=== PATIENT | female | born 1945 | race Caucasian/White ===

== ENCOUNTER 2022-11-15 16:06 | Inpatient (IN) | payer MEDICARE, OTHER, MEDICAID ==
[2022-11-15] MEDS ORDERED: Sodium Chloride 0.9% 10 ML Syringe FLUSH PRN (17:46)
[2022-11-15 19:07] LABS: BASOPHILS ABSOLUTE AUTO 0.02 K/mm3 (0.01-0.08); BASOPHILS PERCENT AUTO 0.2 % (0.1-1.2); EOSINOPHILS ABSOLUTE AUTO 0.16 K/mm3 (0.04-0.36); EOSINOPHILS PERCENT AUTO 1.4 (0.7-5.8); HEMATOCRIT 28.3 % (34.1-44.9); HEMOGLOBIN 8.6 gm/dl (11.2-15.7); IMMATURE GRAN ABSOLUTE AUTO 0.06 K/mm3 (0.00-0.10); IMMATURE GRAN PERCENT AUTO 0.5 % (<=1.0); LYMPHOCYTES ABSOLUTE AUTO 0.96 K/mm3 (1.18-3.74); LYMPHOCYTES PERCENT AUTO 8.4 % (19.3-51.7); MEAN CORPUSCULAR HEMOGLOBIN 28.8 pg (25.6-32.2); MEAN CORPUSCULAR HGB CONC 30.4 g/dl (32.2-35.5); MEAN CORPUSCULAR VOLUME 94.6 fl (79.4-94.8); MEAN PLATELET VOLUME 9.1 fl (9.4-12.3); MONOCYTES ABSOLUTE AUTO 0.86 K/mm3 (0.24-0.36); MONOCYTES PERCENT AUTO 7.5 % (4.7-12.5); NEUTROPHILS ABSOLUTE AUTO 9.39 K/mm3 (1.56-6.13); PLATELET COUNT,PLT 493 K/mm3 (182-369); RED BLOOD CELL COUNT 2.99 M/mm3 (3.98-5.22); WHITE BLOOD CELL COUNT,WBC 11.45 K/mm3 (3.98-10.04)
[2022-11-15 19:27] LABS: INR 1.21; PROTHROMBIN TIME 12.8 SECONDS (9.7-12.0)
[2022-11-15 19:28] LABS: PTT,PARTIAL THROMBOPLSTIN TIME 31.4 SECONDS (21.7-31.4)
[2022-11-15 20:05] LABS: A/G RATIO 0.3 (1-2); ALANINE AMINOTRANSFERASE,ALT 22 U/L (14-59); ALBUMIN 1.3 g/dl (3.4-5.0); ALKALINE PHOSPHATASE 128 U/L (46-116); ANION GAP 6.4 (5-15); ASPARTATE AMNIOTRANSFERASE,AST 23 U/L (15-37); BILIRUBIN TOTAL 0.4 mg/dL (0.2-1.0); BLOOD UREA NITROGEN,BUN 22 mg/dL (7-18); CALCIUM 8.2 mg/dL (8.5-10.1); CARBON DIOXIDE,CO2 34 mEq/L (21-32); CHLORIDE,CL 95 mEq/L (98-107); ESTIMATED GFR 57 mL/min (>60); GLUCOSE RANDOM 181 mg/dL (70-99); LIPASE 33 U/L (73-393); MAGNESIUM 1.6 mg/dL (1.8-2.4); PROTEIN TOTAL,TP 5.6 g/dl (6.4-8.2); SODIUM,NA 133 mEq/L (136-145); TROPONIN I HIGH SENSITIVITY 28 pg/mL (<=51)
[2022-11-15] MEDS ORDERED: cefTRIAXone 2 GM in Sodium Chloride 0.9% 100 ML IV ONE (20:06)
[2022-11-15 20:09] LABS: C-REACTIVE PROTEIN 15.8 mg/dL (<1.0); POTASSIUM,K 2.4 mEq/L (3.5-5.1)
[2022-11-15] MEDS ORDERED: Sodium Chloride 0.9% 1,000 ML ONE (22:38)
[2022-11-15] MEDS: Potassium Chloride 10 MEQ in Premix Bag 1 BAG IV SCH (22:42)
[2022-11-15] MEDS ORDERED: Sodium Chloride 0.9% 1,000 ML IV SCH (22:45)
[2022-11-16] MEDS: Potassium Chloride 10 MEQ in Premix Bag 1 BAG IV SCH ×5 (00:06→11:23)
[2022-11-16] MEDS ORDERED: Ondansetron 4 MG/2 ML SDV IVPUSH PRN (00:38)
[2022-11-16 01:44] LABS: APPEARANCE,URINE CLOUDY (Clear); BILIRUBIN,URINE NEGATIVE (Negative); COLOR,URINE YELLOW (Yellow); GLUCOSE,URINE 2+ (Negative); KETONES,URINE NEGATIVE (Negative); LEUKOCYTE ESTERASE,URINE 1+ (Negative); NITRITE,URINE NEGATIVE (Negative); OCCULT BLOOD,URINE 2+ (Negative); PROTEIN,URINE 1+ (Negative); UROBILINOGEN,URINE 0.2 (0.2-1.0)
[2022-11-16 02:02] LABS: BACTERIA,URINE MANY /hpf (FEW); EPITHELIAL CELLS,URINE NOT SEEN /hpf (0-5); MUCUS,URINE NOT SEEN /hpf (FEW); RBC,URINE 20-30 /hpf (0-5); WBC,URINE >100 /hpf (0-5); YEAST BUDDING,URINE MANY (NOT SEEN)
[2022-11-16] MEDS ORDERED: Loperamide 2 MG Cap PO PRN (06:48)
[2022-11-16 07:30] LABS: BASOPHILS ABSOLUTE AUTO 0.03 K/mm3 (0.01-0.08); BASOPHILS PERCENT AUTO 0.4 % (0.1-1.2); EOSINOPHILS ABSOLUTE AUTO 0.13 K/mm3 (0.04-0.36); EOSINOPHILS PERCENT AUTO 1.7 (0.7-5.8); HEMATOCRIT 24.7 % (34.1-44.9); HEMOGLOBIN 7.5 gm/dl (11.2-15.7); IMMATURE GRAN ABSOLUTE AUTO 0.03 K/mm3 (0.00-0.10); IMMATURE GRAN PERCENT AUTO 0.4 % (<=1.0); LYMPHOCYTES ABSOLUTE AUTO 1.29 K/mm3 (1.18-3.74); LYMPHOCYTES PERCENT AUTO 16.7 % (19.3-51.7); MEAN CORPUSCULAR HEMOGLOBIN 28.5 pg (25.6-32.2); MEAN CORPUSCULAR HGB CONC 30.4 g/dl (32.2-35.5); MEAN CORPUSCULAR VOLUME 93.9 fl (79.4-94.8); MEAN PLATELET VOLUME 9.2 fl (9.4-12.3); MONOCYTES ABSOLUTE AUTO 0.81 K/mm3 (0.24-0.36); MONOCYTES PERCENT AUTO 10.5 % (4.7-12.5); NEUTROPHILS ABSOLUTE AUTO 5.45 K/mm3 (1.56-6.13); NEUTROPHILS PERCENT AUTO 70.3 % (34.0-71.1); PLATELET COUNT,PLT 431 K/mm3 (182-369); RED BLOOD CELL COUNT 2.63 M/mm3 (3.98-5.22); WHITE BLOOD CELL COUNT,WBC 7.74 K/mm3 (3.98-10.04)
[2022-11-16 07:36] LABS: A/G RATIO 0.3 (1-2); ALBUMIN 1.1 g/dl (3.4-5.0); ANION GAP 7.7 (5-15); BILIRUBIN TOTAL 0.3 mg/dL (0.2-1.0); BUN/CREATININE RATIO 23.3 (14-18); CALCIUM 7.5 mg/dL (8.5-10.1); CREATININE 0.9 mg/dL (0.55-1.02); EST CRCL DRUG DOSING (CG) 45.61 mL/min; MAGNESIUM 1.5 mg/dL (1.8-2.4); POTASSIUM,K 2.7 mEq/L (3.5-5.1); PROTEIN TOTAL,TP 4.7 g/dl (6.4-8.2)
[2022-11-16] MEDS: Hydrochlorothiazide 25 MG Tab PO SCH (08:05)
[2022-11-16] MEDS: Ascorbic Acid 500 MG Tab PO SCH ×2 (08:05→20:31)
[2022-11-16] MEDS: Metoprolol Tartrate 25 MG Tab PO SCH ×2 (08:05→20:29)
[2022-11-16] MEDS ORDERED: Furosemide 20 MG Tab PO SCH (09:00)
[2022-11-16] MEDS ORDERED: Potassium Chloride 10 MEQ Tab.ER PO SCH (09:00)
[2022-11-16] MEDS: Heparin Sodium 5,000 Units/ML Vial SUBCUT SCH ×2 (09:47→20:33)
[2022-11-16] MEDS ORDERED: Magnesium Oxide 400 MG Tab PO ONE (10:00)
[2022-11-16] MEDS ORDERED: Furosemide 20 MG Tab PO ONE (10:00)
[2022-11-16] MEDS: Acetaminophen 325 MG Tab PO PRN ×2 (15:25→20:30)
[2022-11-16] MEDS: cefTRIAXone 2 GM in Sodium Chloride 0.9% 100 ML IV SCH (20:26)
[2022-11-16] MEDS: Dexamethasone/Neomycin/Polymyxin B Ophth Oint 3.5 GM Tube EYEBOTH SCH (20:29)
[2022-11-17 05:31] LABS: BASOPHILS ABSOLUTE AUTO 0.01 K/mm3 (0.01-0.08); BASOPHILS PERCENT AUTO 0.1 % (0.1-1.2); EOSINOPHILS ABSOLUTE AUTO 0.57 K/mm3 (0.04-0.36); EOSINOPHILS PERCENT AUTO 8.5 (0.7-5.8); HEMATOCRIT 26.7 % (34.1-44.9); HEMOGLOBIN 8.1 gm/dl (11.2-15.7); IMMATURE GRAN ABSOLUTE AUTO 0.06 K/mm3 (0.00-0.10); IMMATURE GRAN PERCENT AUTO 0.9 % (<=1.0); LYMPHOCYTES ABSOLUTE AUTO 1.08 K/mm3 (1.18-3.74); LYMPHOCYTES PERCENT AUTO 16.1 % (19.3-51.7); MEAN CORPUSCULAR HEMOGLOBIN 28.7 pg (25.6-32.2); MEAN CORPUSCULAR HGB CONC 30.3 g/dl (32.2-35.5); MEAN CORPUSCULAR VOLUME 94.7 fl (79.4-94.8); MONOCYTES ABSOLUTE AUTO 0.69 K/mm3 (0.24-0.36); MONOCYTES PERCENT AUTO 10.3 % (4.7-12.5); NEUTROPHILS ABSOLUTE AUTO 4.28 K/mm3 (1.56-6.13); NEUTROPHILS PERCENT AUTO 64.1 % (34.0-71.1); PLATELET COUNT,PLT 429 K/mm3 (182-369); RED BLOOD CELL COUNT 2.82 M/mm3 (3.98-5.22); WHITE BLOOD CELL COUNT,WBC 6.69 K/mm3 (3.98-10.04)
[2022-11-17 06:24] LABS: A/G RATIO 0.3 (1-2); ALBUMIN 1.1 g/dl (3.4-5.0); ANION GAP 9.6 (5-15); BILIRUBIN TOTAL 0.2 mg/dL (0.2-1.0); BUN/CREATININE RATIO 19.1 (14-18); CALCIUM 7.9 mg/dL (8.5-10.1); CREATININE 1.1 mg/dL (0.55-1.02); EST CRCL DRUG DOSING (CG) 37.32 mL/min; MAGNESIUM 1.6 mg/dL (1.8-2.4); POTASSIUM,K 2.6 mEq/L (3.5-5.1); PROTEIN TOTAL,TP 4.9 g/dl (6.4-8.2)
[2022-11-17 07:33] LABS: HEMOGLOBIN A1C 5.7 %
[2022-11-17] MEDS: Magnesium Oxide 400 MG Tab PO SCH (09:16)
[2022-11-17] MEDS: Heparin Sodium 5,000 Units/ML Vial SUBCUT SCH ×2 (09:16→21:25)
[2022-11-17] MEDS: Metoprolol Tartrate 25 MG Tab PO SCH ×2 (09:16→21:21)
[2022-11-17] MEDS: Ascorbic Acid 500 MG Tab PO SCH ×2 (09:16→21:22)
[2022-11-17] MEDS: Furosemide 80 MG Tab PO SCH (09:17)
[2022-11-17] MEDS: Potassium Chloride 20 MEQ Tab.ER PO SCH (09:17)
[2022-11-17] MEDS: Hydrochlorothiazide 25 MG Tab PO SCH (09:17)
[2022-11-17] MEDS: Dexamethasone/Neomycin/Polymyxin B Ophth Oint 3.5 GM Tube EYEBOTH SCH ×2 (09:18→21:22)
[2022-11-17] MEDS: Acetaminophen 325 MG Tab PO PRN (09:20)
[2022-11-17] MEDS: cefTRIAXone 2 GM in Sodium Chloride 0.9% 100 ML IV SCH (21:25)
[2022-11-18] MEDS: Acetaminophen 325 MG Tab PO PRN ×4 (00:42→22:07)
[2022-11-18 05:25] LABS: BASOPHILS ABSOLUTE AUTO 0.02 K/mm3 (0.01-0.08); BASOPHILS PERCENT AUTO 0.3 % (0.1-1.2); EOSINOPHILS ABSOLUTE AUTO 0.47 K/mm3 (0.04-0.36); EOSINOPHILS PERCENT AUTO 6.5 (0.7-5.8); HEMATOCRIT 25.2 % (34.1-44.9); HEMOGLOBIN 7.7 gm/dl (11.2-15.7); IMMATURE GRAN ABSOLUTE AUTO 0.03 K/mm3 (0.00-0.10); IMMATURE GRAN PERCENT AUTO 0.4 % (<=1.0); LYMPHOCYTES ABSOLUTE AUTO 1.18 K/mm3 (1.18-3.74); LYMPHOCYTES PERCENT AUTO 16.3 % (19.3-51.7); MEAN CORPUSCULAR HEMOGLOBIN 28.7 pg (25.6-32.2); MEAN CORPUSCULAR HGB CONC 30.6 g/dl (32.2-35.5); MEAN PLATELET VOLUME 9.1 fl (9.4-12.3); MONOCYTES ABSOLUTE AUTO 0.65 K/mm3 (0.24-0.36); NEUTROPHILS ABSOLUTE AUTO 4.89 K/mm3 (1.56-6.13); NEUTROPHILS PERCENT AUTO 67.5 % (34.0-71.1); PLATELET COUNT,PLT 454 K/mm3 (182-369); RED BLOOD CELL COUNT 2.68 M/mm3 (3.98-5.22); WHITE BLOOD CELL COUNT,WBC 7.24 K/mm3 (3.98-10.04)
[2022-11-18 05:54] LABS: A/G RATIO 0.3 (1-2); ANION GAP 9.5 (5-15); BILIRUBIN TOTAL 0.2 mg/dL (0.2-1.0); CALCIUM 7.8 mg/dL (8.5-10.1); EST CRCL DRUG DOSING (CG) 41.05 mL/min; MAGNESIUM 1.5 mg/dL (1.8-2.4); PROTEIN TOTAL,TP 4.5 g/dl (6.4-8.2)
[2022-11-18 05:57] LABS: POTASSIUM,K 2.5 mEq/L (3.5-5.1)
[2022-11-18] MEDS: Potassium Chloride 10 MEQ in Premix Bag 1 BAG IV SCH ×4 (08:12→16:13)
[2022-11-18] MEDS ORDERED: Sodium Chloride 0.9% 1,000 ML IV SCH (08:30)
[2022-11-18] MEDS: Magnesium Oxide 400 MG Tab PO SCH (08:42)
[2022-11-18] MEDS: Potassium Chloride 20 MEQ Tab.ER PO SCH (08:43)
[2022-11-18] MEDS: Hydrochlorothiazide 25 MG Tab PO SCH (08:43)
[2022-11-18] MEDS: Ascorbic Acid 500 MG Tab PO SCH ×2 (08:43→21:58)
[2022-11-18] MEDS: Furosemide 80 MG Tab PO SCH (08:43)
[2022-11-18] MEDS: Metoprolol Tartrate 25 MG Tab PO SCH ×2 (08:43→21:59)
[2022-11-18] MEDS: Heparin Sodium 5,000 Units/ML Vial SUBCUT SCH ×2 (08:46→21:57)
[2022-11-18] MEDS: Dexamethasone/Neomycin/Polymyxin B Ophth Oint 3.5 GM Tube EYEBOTH SCH ×2 (11:10→21:58)
[2022-11-18] MEDS: cefTRIAXone 2 GM in Sodium Chloride 0.9% 100 ML IV SCH (21:59)
[2022-11-19] MEDS: Acetaminophen 325 MG Tab PO PRN ×4 (02:33→21:43)
[2022-11-19 07:31] LABS: BASOPHILS ABSOLUTE AUTO 0.03 K/mm3 (0.01-0.08); BASOPHILS PERCENT AUTO 0.3 % (0.1-1.2); EOSINOPHILS ABSOLUTE AUTO 0.42 K/mm3 (0.04-0.36); EOSINOPHILS PERCENT AUTO 4.7 (0.7-5.8); HEMATOCRIT 27.6 % (34.1-44.9); HEMOGLOBIN 8.5 gm/dl (11.2-15.7); IMMATURE GRAN ABSOLUTE AUTO 0.07 K/mm3 (0.00-0.10); IMMATURE GRAN PERCENT AUTO 0.8 % (<=1.0); LYMPHOCYTES ABSOLUTE AUTO 1.49 K/mm3 (1.18-3.74); LYMPHOCYTES PERCENT AUTO 16.8 % (19.3-51.7); MEAN CORPUSCULAR HEMOGLOBIN 28.8 pg (25.6-32.2); MEAN CORPUSCULAR HGB CONC 30.8 g/dl (32.2-35.5); MEAN CORPUSCULAR VOLUME 93.6 fl (79.4-94.8); MEAN PLATELET VOLUME 8.8 fl (9.4-12.3); MONOCYTES ABSOLUTE AUTO 0.65 K/mm3 (0.24-0.36); MONOCYTES PERCENT AUTO 7.3 % (4.7-12.5); NEUTROPHILS ABSOLUTE AUTO 6.22 K/mm3 (1.56-6.13); NEUTROPHILS PERCENT AUTO 70.1 % (34.0-71.1); PLATELET COUNT,PLT 493 K/mm3 (182-369); RED BLOOD CELL COUNT 2.95 M/mm3 (3.98-5.22); WHITE BLOOD CELL COUNT,WBC 8.88 K/mm3 (3.98-10.04)
[2022-11-19 07:54] LABS: A/G RATIO 0.3 (1-2); ALBUMIN 1.1 g/dl (3.4-5.0); ANION GAP 7.3 (5-15); BILIRUBIN TOTAL 0.2 mg/dL (0.2-1.0); CREATININE 0.9 mg/dL (0.55-1.02); EST CRCL DRUG DOSING (CG) 45.61 mL/min; MAGNESIUM 1.5 mg/dL (1.8-2.4); POTASSIUM,K 3.3 mEq/L (3.5-5.1); PROTEIN TOTAL,TP 4.9 g/dl (6.4-8.2)
[2022-11-19] MEDS: Meropenem 1 GM in Sodium Chloride 0.9% 100 ML IV SCH ×3 (08:28→22:14)
[2022-11-19] MEDS: Furosemide 80 MG Tab PO SCH (08:29)
[2022-11-19] MEDS: Metoprolol Tartrate 25 MG Tab PO SCH ×2 (08:29→21:34)
[2022-11-19] MEDS: Heparin Sodium 5,000 Units/ML Vial SUBCUT SCH ×2 (08:29→21:32)
[2022-11-19] MEDS: Hydrochlorothiazide 25 MG Tab PO SCH (08:29)
[2022-11-19] MEDS: Magnesium Oxide 400 MG Tab PO SCH (08:30)
[2022-11-19] MEDS: Dexamethasone/Neomycin/Polymyxin B Ophth Oint 3.5 GM Tube EYEBOTH SCH ×2 (08:30→21:42)
[2022-11-19] MEDS: Potassium Chloride 20 MEQ Tab.ER PO SCH ×3 (08:30→21:35)
[2022-11-19] MEDS: Ascorbic Acid 500 MG Tab PO SCH ×2 (08:30→21:35)
[2022-11-19] MEDS ORDERED: Magnesium Sulfate/Water 4 GM in Premix Bag 1 BAG IV ONE (09:00)
[2022-11-19] MEDS ORDERED: Sodium Chloride 0.9% 10 ML Syringe FLUSH PRN (10:16)
[2022-11-19] MEDS ORDERED: Iopamidol 612 MG/ML 100 ML Bottle IVPUSH ONE (10:16)
[2022-11-19] MEDS: oxyCODONE 5 MG Tab PO PRN (11:04)
[2022-11-19] MEDS: Fluconazole 100 MG Tab PO SCH (13:22)
[2022-11-19] MEDS: Albumin 25% 12.5 GM in Premix Bag 1 BAG IV SCH ×2 (13:23→15:33)
[2022-11-19 13:47] LABS: PHOSPHORUS 2.5 mg/dL (2.6-4.7)
[2022-11-19 14:21] LABS: VITAMIN D,25-HYDROXY 18.1 ng/ml (30.0-100.0)
[2022-11-19] MEDS ORDERED: Sodium Ferric Gluconate Cmplex 125 MG in Sodium Chloride 0.9% 100 ML IV ONE (15:00)
[2022-11-19] MEDS: Bumetanide 1 MG Tab PO SCH (15:34)
[2022-11-19] MEDS ORDERED: Sodium Phosphate 15 MMOLE in Sodium Chloride 0.9% 250 ML IV ONE (16:00)
[2022-11-20] MEDS: oxyCODONE 5 MG Tab PO PRN ×3 (04:56→22:02)
[2022-11-20 05:53] LABS: ANION GAP 10.2 (5-15); CREATININE 0.9 mg/dL (0.55-1.02); EST CRCL DRUG DOSING (CG) 45.61 mL/min; MAGNESIUM 1.9 mg/dL (1.8-2.4); POTASSIUM,K 4.2 mEq/L (3.5-5.1)
[2022-11-20] MEDS: Bumetanide 1 MG Tab PO SCH ×2 (05:55→16:00)
[2022-11-20] MEDS: Meropenem 1 GM in Sodium Chloride 0.9% 100 ML IV SCH ×3 (06:29→23:03)
[2022-11-20] MEDS ORDERED: Magnesium Sulfate/Water 2 GM in Premix Bag 1 BAG IV ONE (08:06)
[2022-11-20] MEDS: Heparin Sodium 5,000 Units/ML Vial SUBCUT SCH ×3 (08:27→21:24)
[2022-11-20] MEDS: Acetaminophen 325 MG Tab PO PRN ×2 (08:28→16:01)
[2022-11-20] MEDS: Potassium Chloride 20 MEQ Tab.ER PO SCH (08:28)
[2022-11-20] MEDS: Ascorbic Acid 500 MG Tab PO SCH ×2 (08:28→21:24)
[2022-11-20] MEDS: Dexamethasone/Neomycin/Polymyxin B Ophth Oint 3.5 GM Tube EYEBOTH SCH ×2 (08:29→21:26)
[2022-11-20] MEDS: Cholecalciferol (Vitamin D3) 5,000 UNIT Cap PO SCH (08:29)
[2022-11-20] MEDS: Fluconazole 100 MG Tab PO SCH (08:31)
[2022-11-20] MEDS: Metoprolol Tartrate 25 MG Tab PO SCH ×2 (08:31→21:26)
[2022-11-20] MEDS ORDERED: Bumetanide 1 MG Tab PO SCH (09:00)
[2022-11-20] MEDS ORDERED: fentaNYL 25 MCG/HR Transdermal Patch TRDERM SCH (17:00)
[2022-11-21] MEDS: Acetaminophen 325 MG Tab PO PRN ×3 (00:21→21:18)
[2022-11-21] MEDS: oxyCODONE 5 MG Tab PO PRN (05:48)
[2022-11-21] MEDS: Bumetanide 1 MG Tab PO SCH ×2 (05:48→16:04)
[2022-11-21] MEDS: Meropenem 1 GM in Sodium Chloride 0.9% 100 ML IV SCH ×2 (06:16→17:49)
[2022-11-21 09:04] LABS: A/G RATIO 0.4 (1-2); ALBUMIN 1.4 g/dl (3.4-5.0); ANION GAP 8.5 (5-15); BILIRUBIN TOTAL 0.2 mg/dL (0.2-1.0); BUN/CREATININE RATIO 23.3 (14-18); CALCIUM 8.1 mg/dL (8.5-10.1); CREATININE 0.9 mg/dL (0.55-1.02); EST CRCL DRUG DOSING (CG) 45.61 mL/min; MAGNESIUM 2.2 mg/dL (1.8-2.4); POTASSIUM,K 4.5 mEq/L (3.5-5.1)
[2022-11-21] MEDS: Cholecalciferol (Vitamin D3) 5,000 UNIT Cap PO SCH (09:08)
[2022-11-21] MEDS: Metoprolol Tartrate 25 MG Tab PO SCH ×2 (09:09→21:19)
[2022-11-21] MEDS: Potassium Chloride 20 MEQ Tab.ER PO SCH (09:09)
[2022-11-21] MEDS: Ascorbic Acid 500 MG Tab PO SCH ×2 (09:09→21:18)
[2022-11-21] MEDS: Magnesium Oxide 400 MG Tab PO SCH (09:09)
[2022-11-21] MEDS: Dexamethasone/Neomycin/Polymyxin B Ophth Oint 3.5 GM Tube EYEBOTH SCH ×2 (09:10→21:23)
[2022-11-21] MEDS: Heparin Sodium 5,000 Units/ML Vial SUBCUT SCH ×2 (09:10→21:17)
[2022-11-21] MEDS ORDERED: Megestrol Susp 40 MG/ML 10 ML UD Cup PO SCH (13:30)
[2022-11-21] MEDS: Megestrol Susp 40 MG/ML 10 ML UD Cup PO SCH (14:01)
[2022-11-21] MEDS: fentaNYL 12 MCG/HR Transdermal Patch TRDERM SCH (14:01)
[2022-11-21] MEDS: Levofloxacin 750 MG Tab PO SCH (16:05)
[2022-11-22] MEDS: oxyCODONE 5 MG Tab PO PRN ×2 (04:26→16:21)
[2022-11-22] MEDS: Bumetanide 1 MG Tab PO SCH ×2 (06:12→16:20)
[2022-11-22 07:08] LABS: A/G RATIO 0.4 (1-2); ALBUMIN 1.3 g/dl (3.4-5.0); ANION GAP 7.2 (5-15); BILIRUBIN TOTAL 0.2 mg/dL (0.2-1.0); BUN/CREATININE RATIO 22.5 (14-18); CALCIUM 7.9 mg/dL (8.5-10.1); CREATININE 0.8 mg/dL (0.55-1.02); EST CRCL DRUG DOSING (CG) 51.31 mL/min; MAGNESIUM 1.7 mg/dL (1.8-2.4); POTASSIUM,K 4.2 mEq/L (3.5-5.1); PROTEIN TOTAL,TP 4.8 g/dl (6.4-8.2)
[2022-11-22] MEDS: Metoprolol Tartrate 25 MG Tab PO SCH ×2 (08:28→20:45)
[2022-11-22] MEDS: Cholecalciferol (Vitamin D3) 5,000 UNIT Cap PO SCH (08:28)
[2022-11-22] MEDS: Magnesium Oxide 400 MG Tab PO SCH (08:28)
[2022-11-22] MEDS: Ascorbic Acid 500 MG Tab PO SCH ×2 (08:28→20:44)
[2022-11-22] MEDS: Megestrol Susp 40 MG/ML 10 ML UD Cup PO SCH (08:28)
[2022-11-22] MEDS: Potassium Chloride 20 MEQ Tab.ER PO SCH (08:30)
[2022-11-22] MEDS: Heparin Sodium 5,000 Units/ML Vial SUBCUT SCH ×2 (08:30→20:45)
[2022-11-22] MEDS: Dexamethasone/Neomycin/Polymyxin B Ophth Oint 3.5 GM Tube EYEBOTH SCH ×2 (08:30→20:44)
[2022-11-22] MEDS: Acetaminophen 325 MG Tab PO PRN (16:20)
[2022-11-22] MEDS: Gabapentin 300 MG Cap PO SCH (20:44)
[2022-11-23] MEDS: oxyCODONE 5 MG Tab PO PRN (02:22)
[2022-11-23] MEDS: Bumetanide 1 MG Tab PO SCH ×2 (05:37→15:58)
[2022-11-23 06:57] LABS: BASOPHILS ABSOLUTE AUTO 0.02 K/mm3 (0.01-0.08); BASOPHILS PERCENT AUTO 0.2 % (0.1-1.2); EOSINOPHILS ABSOLUTE AUTO 0.29 K/mm3 (0.04-0.36); EOSINOPHILS PERCENT AUTO 3.1 (0.7-5.8); HEMATOCRIT 25.5 % (34.1-44.9); HEMOGLOBIN 7.6 gm/dl (11.2-15.7); IMMATURE GRAN ABSOLUTE AUTO 0.07 K/mm3 (0.00-0.10); IMMATURE GRAN PERCENT AUTO 0.7 % (<=1.0); LYMPHOCYTES ABSOLUTE AUTO 1.68 K/mm3 (1.18-3.74); LYMPHOCYTES PERCENT AUTO 17.8 % (19.3-51.7); MEAN CORPUSCULAR HEMOGLOBIN 28.6 pg (25.6-32.2); MEAN CORPUSCULAR HGB CONC 29.8 g/dl (32.2-35.5); MEAN CORPUSCULAR VOLUME 95.9 fl (79.4-94.8); MEAN PLATELET VOLUME 8.8 fl (9.4-12.3); MONOCYTES ABSOLUTE AUTO 0.63 K/mm3 (0.24-0.36); MONOCYTES PERCENT AUTO 6.7 % (4.7-12.5); NEUTROPHILS ABSOLUTE AUTO 6.74 K/mm3 (1.56-6.13); NEUTROPHILS PERCENT AUTO 71.5 % (34.0-71.1); PLATELET COUNT,PLT 387 K/mm3 (182-369); RED BLOOD CELL COUNT 2.66 M/mm3 (3.98-5.22); WHITE BLOOD CELL COUNT,WBC 9.43 K/mm3 (3.98-10.04)
[2022-11-23 07:38] LABS: A/G RATIO 0.4 (1-2); ALBUMIN 1.2 g/dl (3.4-5.0); ANION GAP 6.1 (5-15); BILIRUBIN TOTAL 0.2 mg/dL (0.2-1.0); BUN/CREATININE RATIO 26.3 (14-18); CALCIUM 8.2 mg/dL (8.5-10.1); CREATININE 0.8 mg/dL (0.55-1.02); EST CRCL DRUG DOSING (CG) 51.31 mL/min; MAGNESIUM 1.7 mg/dL (1.8-2.4); PHOSPHORUS 2.7 mg/dL (2.6-4.7); POTASSIUM,K 4.1 mEq/L (3.5-5.1); PROTEIN TOTAL,TP 4.5 g/dl (6.4-8.2)
[2022-11-23] MEDS ORDERED: Magnesium Sulfate/Water 2 GM in Premix Bag 1 BAG IV ONE (08:00)
[2022-11-23] MEDS: Potassium Chloride 20 MEQ Tab.ER PO SCH (08:59)
[2022-11-23] MEDS: Heparin Sodium 5,000 Units/ML Vial SUBCUT SCH ×2 (08:59→21:01)
[2022-11-23] MEDS: Metoprolol Tartrate 25 MG Tab PO SCH ×2 (08:59→20:59)
[2022-11-23] MEDS: Magnesium Oxide 400 MG Tab PO SCH (08:59)
[2022-11-23] MEDS: Gabapentin 300 MG Cap PO SCH ×3 (08:59→20:59)
[2022-11-23] MEDS: Cholecalciferol (Vitamin D3) 5,000 UNIT Cap PO SCH (08:59)
[2022-11-23] MEDS: Ascorbic Acid 500 MG Tab PO SCH ×2 (08:59→20:59)
[2022-11-23] MEDS: Megestrol Susp 40 MG/ML 10 ML UD Cup PO SCH (09:02)
[2022-11-23] MEDS: Dexamethasone/Neomycin/Polymyxin B Ophth Oint 3.5 GM Tube EYEBOTH SCH ×2 (09:02→21:02)
[2022-11-23] MEDS: Levofloxacin 750 MG Tab PO SCH (15:58)
[2022-11-24] MEDS: oxyCODONE 5 MG Tab PO PRN (04:03)
[2022-11-24] MEDS: Bumetanide 1 MG Tab PO SCH ×2 (06:10→15:21)
[2022-11-24 06:19] LABS: BASOPHILS ABSOLUTE AUTO 0.01 K/mm3 (0.01-0.08); BASOPHILS PERCENT AUTO 0.1 % (0.1-1.2); EOSINOPHILS ABSOLUTE AUTO 0.25 K/mm3 (0.04-0.36); HEMATOCRIT 25.4 % (34.1-44.9); HEMOGLOBIN 7.5 gm/dl (11.2-15.7); IMMATURE GRAN ABSOLUTE AUTO 0.07 K/mm3 (0.00-0.10); IMMATURE GRAN PERCENT AUTO 0.8 % (<=1.0); LYMPHOCYTES ABSOLUTE AUTO 1.62 K/mm3 (1.18-3.74); LYMPHOCYTES PERCENT AUTO 19.2 % (19.3-51.7); MEAN CORPUSCULAR HEMOGLOBIN 28.2 pg (25.6-32.2); MEAN CORPUSCULAR HGB CONC 29.5 g/dl (32.2-35.5); MEAN CORPUSCULAR VOLUME 95.5 fl (79.4-94.8); MEAN PLATELET VOLUME 9.5 fl (9.4-12.3); MONOCYTES ABSOLUTE AUTO 0.65 K/mm3 (0.24-0.36); MONOCYTES PERCENT AUTO 7.7 % (4.7-12.5); NEUTROPHILS ABSOLUTE AUTO 5.85 K/mm3 (1.56-6.13); NEUTROPHILS PERCENT AUTO 69.2 % (34.0-71.1); PLATELET COUNT,PLT 377 K/mm3 (182-369); RED BLOOD CELL COUNT 2.66 M/mm3 (3.98-5.22); WHITE BLOOD CELL COUNT,WBC 8.45 K/mm3 (3.98-10.04)
[2022-11-24 06:21] LABS: A/G RATIO 0.3 (1-2); ALBUMIN 1.1 g/dl (3.4-5.0); ANION GAP 9.2 (5-15); BILIRUBIN TOTAL 0.2 mg/dL (0.2-1.0); BUN/CREATININE RATIO 21.1 (14-18); CALCIUM 7.8 mg/dL (8.5-10.1); CREATININE 0.9 mg/dL (0.55-1.02); EST CRCL DRUG DOSING (CG) 45.61 mL/min; MAGNESIUM 1.7 mg/dL (1.8-2.4); POTASSIUM,K 4.2 mEq/L (3.5-5.1); PROTEIN TOTAL,TP 4.7 g/dl (6.4-8.2)
[2022-11-24] MEDS: Potassium Chloride 20 MEQ Tab.ER PO SCH (08:40)
[2022-11-24] MEDS: Cholecalciferol (Vitamin D3) 5,000 UNIT Cap PO SCH (08:41)
[2022-11-24] MEDS: Acetaminophen 325 MG Tab PO PRN ×2 (08:41→20:46)
[2022-11-24] MEDS: Metoprolol Tartrate 25 MG Tab PO SCH ×2 (08:42→20:47)
[2022-11-24] MEDS: Gabapentin 300 MG Cap PO SCH ×3 (08:43→20:47)
[2022-11-24] MEDS: Ascorbic Acid 500 MG Tab PO SCH ×2 (08:43→20:47)
[2022-11-24] MEDS: Magnesium Oxide 400 MG Tab PO SCH (08:43)
[2022-11-24] MEDS: Heparin Sodium 5,000 Units/ML Vial SUBCUT SCH ×2 (08:44→20:47)
[2022-11-24] MEDS: Megestrol Susp 40 MG/ML 10 ML UD Cup PO SCH (08:44)
[2022-11-24] MEDS: Dexamethasone/Neomycin/Polymyxin B Ophth Oint 3.5 GM Tube EYEBOTH SCH ×2 (08:44→20:55)
[2022-11-24] MEDS: fentaNYL 12 MCG/HR Transdermal Patch TRDERM SCH (15:19)
[2022-11-25] MEDS: Bumetanide 1 MG Tab PO SCH ×2 (06:10→16:51)
[2022-11-25 06:36] LABS: BASOPHILS ABSOLUTE AUTO 0.03 K/mm3 (0.01-0.08); BASOPHILS PERCENT AUTO 0.3 % (0.1-1.2); EOSINOPHILS ABSOLUTE AUTO 0.22 K/mm3 (0.04-0.36); EOSINOPHILS PERCENT AUTO 2.4 (0.7-5.8); HEMATOCRIT 25.9 % (34.1-44.9); HEMOGLOBIN 7.8 gm/dl (11.2-15.7); IMMATURE GRAN ABSOLUTE AUTO 0.07 K/mm3 (0.00-0.10); IMMATURE GRAN PERCENT AUTO 0.7 % (<=1.0); LYMPHOCYTES ABSOLUTE AUTO 1.78 K/mm3 (1.18-3.74); MEAN CORPUSCULAR HEMOGLOBIN 28.4 pg (25.6-32.2); MEAN CORPUSCULAR HGB CONC 30.1 g/dl (32.2-35.5); MEAN CORPUSCULAR VOLUME 94.2 fl (79.4-94.8); MEAN PLATELET VOLUME 9.2 fl (9.4-12.3); MONOCYTES ABSOLUTE AUTO 0.78 K/mm3 (0.24-0.36); MONOCYTES PERCENT AUTO 8.3 % (4.7-12.5); NEUTROPHILS ABSOLUTE AUTO 6.47 K/mm3 (1.56-6.13); NEUTROPHILS PERCENT AUTO 69.3 % (34.0-71.1); PLATELET COUNT,PLT 391 K/mm3 (182-369); RED BLOOD CELL COUNT 2.75 M/mm3 (3.98-5.22); WHITE BLOOD CELL COUNT,WBC 9.35 K/mm3 (3.98-10.04)
[2022-11-25 06:54] LABS: A/G RATIO 0.3 (1-2); ALBUMIN 1.2 g/dl (3.4-5.0); ANION GAP 10.1 (5-15); BILIRUBIN TOTAL 0.2 mg/dL (0.2-1.0); CALCIUM 8.2 mg/dL (8.5-10.1); CREATININE 0.9 mg/dL (0.55-1.02); EST CRCL DRUG DOSING (CG) 45.61 mL/min; MAGNESIUM 1.7 mg/dL (1.8-2.4); POTASSIUM,K 4.1 mEq/L (3.5-5.1); PROTEIN TOTAL,TP 4.8 g/dl (6.4-8.2)
[2022-11-25] MEDS: Acetaminophen 325 MG Tab PO PRN ×2 (08:18→20:30)
[2022-11-25] MEDS: Megestrol Susp 40 MG/ML 10 ML UD Cup PO SCH (08:18)
[2022-11-25] MEDS: Gabapentin 300 MG Cap PO SCH ×3 (08:19→20:27)
[2022-11-25] MEDS: Cholecalciferol (Vitamin D3) 5,000 UNIT Cap PO SCH (08:20)
[2022-11-25] MEDS: Metoprolol Tartrate 25 MG Tab PO SCH ×2 (08:20→20:30)
[2022-11-25] MEDS: Potassium Chloride 20 MEQ Tab.ER PO SCH (08:20)
[2022-11-25] MEDS: Magnesium Oxide 400 MG Tab PO SCH (08:20)
[2022-11-25] MEDS: Ascorbic Acid 500 MG Tab PO SCH ×2 (08:20→20:30)
[2022-11-25] MEDS: Dexamethasone/Neomycin/Polymyxin B Ophth Oint 3.5 GM Tube EYEBOTH SCH ×2 (08:21→20:31)
[2022-11-25] MEDS: Heparin Sodium 5,000 Units/ML Vial SUBCUT SCH ×2 (08:30→20:31)
[2022-11-25] MEDS: Levofloxacin 750 MG Tab PO SCH (16:52)
[2022-11-26] MEDS: Bumetanide 1 MG Tab PO SCH ×2 (05:53→16:14)
[2022-11-26 06:22] LABS: A/G RATIO 0.3 (1-2); ALBUMIN 1.1 g/dl (3.4-5.0); ANION GAP 9.9 (5-15); BILIRUBIN TOTAL 0.2 mg/dL (0.2-1.0); BUN/CREATININE RATIO 21.1 (14-18); CREATININE 0.9 mg/dL (0.55-1.02); EST CRCL DRUG DOSING (CG) 45.61 mL/min; MAGNESIUM 1.7 mg/dL (1.8-2.4); POTASSIUM,K 3.9 mEq/L (3.5-5.1); PROTEIN TOTAL,TP 4.6 g/dl (6.4-8.2)
[2022-11-26 06:23] LABS: BASOPHILS ABSOLUTE AUTO 0.02 K/mm3 (0.01-0.08); BASOPHILS PERCENT AUTO 0.2 % (0.1-1.2); EOSINOPHILS ABSOLUTE AUTO 0.15 K/mm3 (0.04-0.36); EOSINOPHILS PERCENT AUTO 1.8 (0.7-5.8); HEMATOCRIT 24.9 % (34.1-44.9); HEMOGLOBIN 7.5 gm/dl (11.2-15.7); IMMATURE GRAN ABSOLUTE AUTO 0.05 K/mm3 (0.00-0.10); IMMATURE GRAN PERCENT AUTO 0.6 % (<=1.0); LYMPHOCYTES ABSOLUTE AUTO 1.52 K/mm3 (1.18-3.74); LYMPHOCYTES PERCENT AUTO 18.2 % (19.3-51.7); MEAN CORPUSCULAR HEMOGLOBIN 28.4 pg (25.6-32.2); MEAN CORPUSCULAR HGB CONC 30.1 g/dl (32.2-35.5); MEAN CORPUSCULAR VOLUME 94.3 fl (79.4-94.8); MEAN PLATELET VOLUME 9.4 fl (9.4-12.3); MONOCYTES ABSOLUTE AUTO 0.73 K/mm3 (0.24-0.36); MONOCYTES PERCENT AUTO 8.7 % (4.7-12.5); NEUTROPHILS PERCENT AUTO 70.5 % (34.0-71.1); PLATELET COUNT,PLT 396 K/mm3 (182-369); RED BLOOD CELL COUNT 2.64 M/mm3 (3.98-5.22); WHITE BLOOD CELL COUNT,WBC 8.37 K/mm3 (3.98-10.04)
[2022-11-26] MEDS: Megestrol Susp 40 MG/ML 10 ML UD Cup PO SCH (09:51)
[2022-11-26] MEDS: Heparin Sodium 5,000 Units/ML Vial SUBCUT SCH ×2 (09:51→21:18)
[2022-11-26] MEDS: Cholecalciferol (Vitamin D3) 5,000 UNIT Cap PO SCH (09:52)
[2022-11-26] MEDS: Ascorbic Acid 500 MG Tab PO SCH ×2 (09:52→21:16)
[2022-11-26] MEDS: Magnesium Oxide 400 MG Tab PO SCH (09:52)
[2022-11-26] MEDS: Potassium Chloride 20 MEQ Tab.ER PO SCH (09:52)
[2022-11-26] MEDS: Gabapentin 300 MG Cap PO SCH ×3 (09:52→21:17)
[2022-11-26] MEDS: Dexamethasone/Neomycin/Polymyxin B Ophth Oint 3.5 GM Tube EYEBOTH SCH ×2 (09:54→21:18)
[2022-11-26] MEDS: Metoprolol Tartrate 25 MG Tab PO SCH ×2 (10:04→21:16)
[2022-11-26] MEDS: Acetaminophen 325 MG Tab PO PRN (21:17)
[2022-11-26] MEDS: oxyCODONE 5 MG Tab PO PRN (23:34)
[2022-11-27] MEDS: Bumetanide 1 MG Tab PO SCH ×2 (05:29→14:20)
[2022-11-27 07:48] LABS: BASOPHILS ABSOLUTE AUTO 0.02 K/mm3 (0.01-0.08); BASOPHILS PERCENT AUTO 0.3 % (0.1-1.2); EOSINOPHILS ABSOLUTE AUTO 0.13 K/mm3 (0.04-0.36); EOSINOPHILS PERCENT AUTO 1.7 (0.7-5.8); HEMATOCRIT 27.2 % (34.1-44.9); HEMOGLOBIN 8.2 gm/dl (11.2-15.7); IMMATURE GRAN ABSOLUTE AUTO 0.05 K/mm3 (0.00-0.10); IMMATURE GRAN PERCENT AUTO 0.6 % (<=1.0); LYMPHOCYTES ABSOLUTE AUTO 1.45 K/mm3 (1.18-3.74); LYMPHOCYTES PERCENT AUTO 18.8 % (19.3-51.7); MEAN CORPUSCULAR HEMOGLOBIN 28.5 pg (25.6-32.2); MEAN CORPUSCULAR HGB CONC 30.1 g/dl (32.2-35.5); MEAN CORPUSCULAR VOLUME 94.4 fl (79.4-94.8); MEAN PLATELET VOLUME 9.5 fl (9.4-12.3); MONOCYTES ABSOLUTE AUTO 0.69 K/mm3 (0.24-0.36); MONOCYTES PERCENT AUTO 8.9 % (4.7-12.5); NEUTROPHILS ABSOLUTE AUTO 5.37 K/mm3 (1.56-6.13); NEUTROPHILS PERCENT AUTO 69.7 % (34.0-71.1); PLATELET COUNT,PLT 425 K/mm3 (182-369); RED BLOOD CELL COUNT 2.88 M/mm3 (3.98-5.22); WHITE BLOOD CELL COUNT,WBC 7.71 K/mm3 (3.98-10.04)
[2022-11-27 07:52] LABS: A/G RATIO 0.3 (1-2); ALBUMIN 1.2 g/dl (3.4-5.0); ANION GAP 9.8 (5-15); BILIRUBIN TOTAL 0.2 mg/dL (0.2-1.0); EST CRCL DRUG DOSING (CG) 41.05 mL/min; MAGNESIUM 1.5 mg/dL (1.8-2.4); POTASSIUM,K 3.8 mEq/L (3.5-5.1)
[2022-11-27] MEDS: Gabapentin 300 MG Cap PO SCH ×3 (09:41→20:53)
[2022-11-27] MEDS: Ascorbic Acid 500 MG Tab PO SCH ×2 (09:41→20:53)
[2022-11-27] MEDS: Magnesium Oxide 400 MG Tab PO SCH (09:41)
[2022-11-27] MEDS: Megestrol Susp 40 MG/ML 10 ML UD Cup PO SCH (09:41)
[2022-11-27] MEDS: Cholecalciferol (Vitamin D3) 5,000 UNIT Cap PO SCH (09:41)
[2022-11-27] MEDS: Metoprolol Tartrate 25 MG Tab PO SCH ×2 (09:42→20:53)
[2022-11-27] MEDS: Heparin Sodium 5,000 Units/ML Vial SUBCUT SCH ×2 (09:42→20:52)
[2022-11-27] MEDS: Dexamethasone/Neomycin/Polymyxin B Ophth Oint 3.5 GM Tube EYEBOTH SCH ×2 (09:42→20:52)
[2022-11-27] MEDS: Potassium Chloride 20 MEQ Tab.ER PO SCH (09:42)
[2022-11-27] MEDS ORDERED: Magnesium Sulfate/Water 2 GM in Premix Bag 1 BAG IV ONE (11:15)
[2022-11-27] MEDS: fentaNYL 12 MCG/HR Transdermal Patch TRDERM SCH (14:19)
[2022-11-27] MEDS: Acetaminophen 325 MG Tab PO PRN (14:20)
[2022-11-27] MEDS: oxyCODONE 5 MG Tab PO PRN ×2 (14:21→20:52)
[2022-11-28] MEDS: Bumetanide 1 MG Tab PO SCH ×2 (05:20→15:47)
[2022-11-28] MEDS: Heparin Sodium 5,000 Units/ML Vial SUBCUT SCH ×2 (08:33→20:37)
[2022-11-28] MEDS: Megestrol Susp 40 MG/ML 10 ML UD Cup PO SCH (08:33)
[2022-11-28] MEDS: Dexamethasone/Neomycin/Polymyxin B Ophth Oint 3.5 GM Tube EYEBOTH SCH (08:34)
[2022-11-28] MEDS: Metoprolol Tartrate 25 MG Tab PO SCH ×2 (08:34→20:36)
[2022-11-28] MEDS: Magnesium Oxide 400 MG Tab PO SCH (08:35)
[2022-11-28] MEDS: Ascorbic Acid 500 MG Tab PO SCH ×2 (08:35→20:36)
[2022-11-28] MEDS: Potassium Chloride 20 MEQ Tab.ER PO SCH (08:35)
[2022-11-28] MEDS: Cholecalciferol (Vitamin D3) 5,000 UNIT Cap PO SCH (08:35)
[2022-11-28] MEDS: Gabapentin 300 MG Cap PO SCH ×3 (08:35→20:36)
[2022-11-28] MEDS ORDERED: Magnesium Sulfate/Water 2 GM in Premix Bag 1 BAG IV ONE (09:00)
[2022-11-29] MEDS: Bumetanide 1 MG Tab PO SCH ×2 (06:13→14:41)
[2022-11-29] MEDS: Heparin Sodium 5,000 Units/ML Vial SUBCUT SCH ×2 (08:43→22:08)
[2022-11-29] MEDS: Potassium Chloride 20 MEQ Tab.ER PO SCH (08:43)
[2022-11-29] MEDS: Megestrol Susp 40 MG/ML 10 ML UD Cup PO SCH (08:43)
[2022-11-29] MEDS: Metoprolol Tartrate 25 MG Tab PO SCH ×2 (08:44→20:03)
[2022-11-29] MEDS: Ascorbic Acid 500 MG Tab PO SCH ×2 (08:44→20:04)
[2022-11-29] MEDS: Cholecalciferol (Vitamin D3) 5,000 UNIT Cap PO SCH (08:44)
[2022-11-29] MEDS: Gabapentin 300 MG Cap PO SCH ×3 (08:44→20:01)
[2022-11-29] MEDS: Magnesium Oxide 400 MG Tab PO SCH (08:44)
[2022-11-29] MEDS: oxyCODONE 5 MG Tab PO PRN (20:02)
[2022-11-30] MEDS: Acetaminophen 325 MG Tab PO PRN (04:05)
[2022-11-30] MEDS: Bumetanide 1 MG Tab PO SCH ×2 (05:54→15:06)
[2022-11-30 07:37] LABS: A/G RATIO 0.3 (1-2); ALBUMIN 1.3 g/dl (3.4-5.0); ANION GAP 8.4 (5-15); BILIRUBIN TOTAL 0.2 mg/dL (0.2-1.0); CALCIUM 8.2 mg/dL (8.5-10.1); EST CRCL DRUG DOSING (CG) 41.05 mL/min; POTASSIUM,K 4.4 mEq/L (3.5-5.1); PROTEIN TOTAL,TP 5.2 g/dl (6.4-8.2)
[2022-11-30 07:39] LABS: BASOPHILS ABSOLUTE AUTO 0.03 K/mm3 (0.01-0.08); BASOPHILS PERCENT AUTO 0.4 % (0.1-1.2); EOSINOPHILS ABSOLUTE AUTO 0.13 K/mm3 (0.04-0.36); EOSINOPHILS PERCENT AUTO 1.6 (0.7-5.8); HEMATOCRIT 26.5 % (34.1-44.9); HEMOGLOBIN 7.9 gm/dl (11.2-15.7); IMMATURE GRAN ABSOLUTE AUTO 0.05 K/mm3 (0.00-0.10); IMMATURE GRAN PERCENT AUTO 0.6 % (<=1.0); LYMPHOCYTES ABSOLUTE AUTO 1.58 K/mm3 (1.18-3.74); LYMPHOCYTES PERCENT AUTO 19.4 % (19.3-51.7); MEAN CORPUSCULAR HEMOGLOBIN 28.5 pg (25.6-32.2); MEAN CORPUSCULAR HGB CONC 29.8 g/dl (32.2-35.5); MEAN CORPUSCULAR VOLUME 95.7 fl (79.4-94.8); MEAN PLATELET VOLUME 9.6 fl (9.4-12.3); MONOCYTES ABSOLUTE AUTO 0.77 K/mm3 (0.24-0.36); MONOCYTES PERCENT AUTO 9.4 % (4.7-12.5); NEUTROPHILS ABSOLUTE AUTO 5.59 K/mm3 (1.56-6.13); NEUTROPHILS PERCENT AUTO 68.6 % (34.0-71.1); PLATELET COUNT,PLT 443 K/mm3 (182-369); RED BLOOD CELL COUNT 2.77 M/mm3 (3.98-5.22); WHITE BLOOD CELL COUNT,WBC 8.15 K/mm3 (3.98-10.04)
[2022-11-30] MEDS: Megestrol Susp 40 MG/ML 10 ML UD Cup PO SCH (09:42)
[2022-11-30] MEDS: Ascorbic Acid 500 MG Tab PO SCH ×2 (09:42→21:06)
[2022-11-30] MEDS: Heparin Sodium 5,000 Units/ML Vial SUBCUT SCH ×2 (09:42→21:08)
[2022-11-30] MEDS: Gabapentin 300 MG Cap PO SCH ×3 (09:42→21:06)
[2022-11-30] MEDS: Metoprolol Tartrate 25 MG Tab PO SCH ×2 (09:42→21:06)
[2022-11-30] MEDS: Cholecalciferol (Vitamin D3) 5,000 UNIT Cap PO SCH (09:42)
[2022-11-30] MEDS: oxyCODONE 5 MG Tab PO PRN ×2 (09:44→21:05)
[2022-11-30] MEDS: Potassium Chloride 20 MEQ Tab.ER PO SCH (09:44)
[2022-11-30] MEDS: Magnesium Oxide 400 MG Tab PO SCH (09:44)
[2022-11-30] MEDS: fentaNYL 12 MCG/HR Transdermal Patch TRDERM SCH (15:05)
[2022-12-01 05:24] LABS: BASOPHILS ABSOLUTE AUTO 0.03 K/mm3 (0.01-0.08); BASOPHILS PERCENT AUTO 0.4 % (0.1-1.2); EOSINOPHILS ABSOLUTE AUTO 0.14 K/mm3 (0.04-0.36); EOSINOPHILS PERCENT AUTO 1.8 (0.7-5.8); HEMATOCRIT 25.7 % (34.1-44.9); HEMOGLOBIN 7.7 gm/dl (11.2-15.7); IMMATURE GRAN ABSOLUTE AUTO 0.06 K/mm3 (0.00-0.10); IMMATURE GRAN PERCENT AUTO 0.8 % (<=1.0); LYMPHOCYTES ABSOLUTE AUTO 1.65 K/mm3 (1.18-3.74); LYMPHOCYTES PERCENT AUTO 21.6 % (19.3-51.7); MEAN CORPUSCULAR HEMOGLOBIN 28.7 pg (25.6-32.2); MEAN CORPUSCULAR VOLUME 95.9 fl (79.4-94.8); MONOCYTES ABSOLUTE AUTO 0.66 K/mm3 (0.24-0.36); MONOCYTES PERCENT AUTO 8.6 % (4.7-12.5); NEUTROPHILS ABSOLUTE AUTO 5.11 K/mm3 (1.56-6.13); NEUTROPHILS PERCENT AUTO 66.8 % (34.0-71.1); PLATELET COUNT,PLT 448 K/mm3 (182-369); RED BLOOD CELL COUNT 2.68 M/mm3 (3.98-5.22); WHITE BLOOD CELL COUNT,WBC 7.65 K/mm3 (3.98-10.04)
[2022-12-01 05:52] LABS: ANION GAP 11.5 (5-15); BUN/CREATININE RATIO 24.5 (14-18); CALCIUM 8.1 mg/dL (8.5-10.1); CREATININE 1.1 mg/dL (0.55-1.02); EST CRCL DRUG DOSING (CG) 37.32 mL/min; MAGNESIUM 1.7 mg/dL (1.8-2.4); POTASSIUM,K 4.5 mEq/L (3.5-5.1)
[2022-12-01] MEDS: Bumetanide 1 MG Tab PO SCH ×2 (06:56→14:35)
[2022-12-01] MEDS: Megestrol Susp 40 MG/ML 10 ML UD Cup PO SCH (08:31)
[2022-12-01] MEDS: Potassium Chloride 20 MEQ Tab.ER PO SCH (08:31)
[2022-12-01] MEDS: Heparin Sodium 5,000 Units/ML Vial SUBCUT SCH ×2 (08:31→21:47)
[2022-12-01] MEDS: Magnesium Oxide 400 MG Tab PO SCH (08:31)
[2022-12-01] MEDS: Gabapentin 300 MG Cap PO SCH ×3 (08:31→21:48)
[2022-12-01] MEDS: Metoprolol Tartrate 25 MG Tab PO SCH ×2 (08:31→21:48)
[2022-12-01] MEDS: Cholecalciferol (Vitamin D3) 5,000 UNIT Cap PO SCH (08:31)
[2022-12-01] MEDS: Ascorbic Acid 500 MG Tab PO SCH ×2 (08:33→21:49)
[2022-12-01] MEDS: Acetaminophen 325 MG Tab PO PRN (08:33)
[2022-12-01] MEDS: oxyCODONE 5 MG Tab PO PRN ×2 (14:36→21:49)
[2022-12-02] MEDS: Bumetanide 1 MG Tab PO SCH ×2 (05:01→15:04)
[2022-12-02] MEDS: Megestrol Susp 40 MG/ML 10 ML UD Cup PO SCH (08:21)
[2022-12-02] MEDS: Potassium Chloride 20 MEQ Tab.ER PO SCH (08:21)
[2022-12-02] MEDS: Ascorbic Acid 500 MG Tab PO SCH ×2 (08:22→21:33)
[2022-12-02] MEDS: Cholecalciferol (Vitamin D3) 5,000 UNIT Cap PO SCH (08:22)
[2022-12-02] MEDS: Acetaminophen 325 MG Tab PO PRN (08:22)
[2022-12-02] MEDS: Magnesium Oxide 400 MG Tab PO SCH (08:22)
[2022-12-02] MEDS: Gabapentin 300 MG Cap PO SCH ×3 (08:22→21:32)
[2022-12-02] MEDS: Metoprolol Tartrate 25 MG Tab PO SCH ×2 (08:23→21:34)
[2022-12-02] MEDS: Heparin Sodium 5,000 Units/ML Vial SUBCUT SCH ×2 (08:30→21:35)
[2022-12-02] MEDS: oxyCODONE 5 MG Tab PO PRN ×2 (15:04→21:33)
[2022-12-03] MEDS: Bumetanide 1 MG Tab PO SCH ×2 (05:09→14:59)
[2022-12-03 05:58] LABS: BASOPHILS ABSOLUTE AUTO 0.04 K/mm3 (0.01-0.08); BASOPHILS PERCENT AUTO 0.6 % (0.1-1.2); EOSINOPHILS PERCENT AUTO 2.9 (0.7-5.8); HEMATOCRIT 26.3 % (34.1-44.9); IMMATURE GRAN ABSOLUTE AUTO 0.05 K/mm3 (0.00-0.10); IMMATURE GRAN PERCENT AUTO 0.7 % (<=1.0); LYMPHOCYTES PERCENT AUTO 21.8 % (19.3-51.7); MEAN CORPUSCULAR HEMOGLOBIN 29.4 pg (25.6-32.2); MEAN CORPUSCULAR HGB CONC 30.4 g/dl (32.2-35.5); MEAN CORPUSCULAR VOLUME 96.7 fl (79.4-94.8); MEAN PLATELET VOLUME 9.2 fl (9.4-12.3); MONOCYTES ABSOLUTE AUTO 0.67 K/mm3 (0.24-0.36); MONOCYTES PERCENT AUTO 9.7 % (4.7-12.5); NEUTROPHILS ABSOLUTE AUTO 4.42 K/mm3 (1.56-6.13); NEUTROPHILS PERCENT AUTO 64.3 % (34.0-71.1); PLATELET COUNT,PLT 418 K/mm3 (182-369); RED BLOOD CELL COUNT 2.72 M/mm3 (3.98-5.22); WHITE BLOOD CELL COUNT,WBC 6.88 K/mm3 (3.98-10.04)
[2022-12-03 06:07] LABS: CALCIUM 8.1 mg/dL (8.5-10.1); EST CRCL DRUG DOSING (CG) 41.05 mL/min
[2022-12-03] MEDS: Heparin Sodium 5,000 Units/ML Vial SUBCUT SCH ×2 (09:06→20:53)
[2022-12-03] MEDS: Cholecalciferol (Vitamin D3) 5,000 UNIT Cap PO SCH (09:07)
[2022-12-03] MEDS: Metoprolol Tartrate 25 MG Tab PO SCH ×2 (09:07→20:51)
[2022-12-03] MEDS: Megestrol Susp 40 MG/ML 10 ML UD Cup PO SCH (09:07)
[2022-12-03] MEDS: Magnesium Oxide 400 MG Tab PO SCH ×2 (09:07→20:51)
[2022-12-03] MEDS: Gabapentin 300 MG Cap PO SCH ×3 (09:07→20:51)
[2022-12-03] MEDS: Ascorbic Acid 500 MG Tab PO SCH ×2 (09:07→20:51)
[2022-12-03] MEDS: Potassium Chloride 20 MEQ Tab.ER PO SCH (09:07)
[2022-12-03] MEDS: fentaNYL 12 MCG/HR Transdermal Patch TRDERM SCH (14:59)
[2022-12-03] MEDS: oxyCODONE 5 MG Tab PO PRN (20:51)
[2022-12-04] MEDS: Acetaminophen 325 MG Tab PO PRN ×2 (00:30→22:40)
[2022-12-04] MEDS: Bumetanide 1 MG Tab PO SCH ×2 (06:03→15:26)
[2022-12-04] MEDS: Potassium Chloride 20 MEQ Tab.ER PO SCH (08:36)
[2022-12-04] MEDS: Gabapentin 300 MG Cap PO SCH ×3 (08:36→20:23)
[2022-12-04] MEDS: Ascorbic Acid 500 MG Tab PO SCH (08:36)
[2022-12-04] MEDS: Cholecalciferol (Vitamin D3) 5,000 UNIT Cap PO SCH (08:36)
[2022-12-04] MEDS: Magnesium Oxide 400 MG Tab PO SCH (08:36)
[2022-12-04] MEDS: Heparin Sodium 5,000 Units/ML Vial SUBCUT SCH (08:38)
[2022-12-04] MEDS: Megestrol Susp 40 MG/ML 10 ML UD Cup PO SCH (08:38)
[2022-12-04] MEDS: Metoprolol Tartrate 25 MG Tab PO SCH (11:18)
[2022-12-04] MEDS: oxyCODONE 5 MG Tab PO PRN (21:55)
[2022-12-05] MEDS: oxyCODONE 5 MG Tab PO PRN (08:48)
[2022-12-05] MEDS: Gabapentin 300 MG Cap PO SCH ×3 (08:48→21:06)
[2022-12-05] MEDS: Bumetanide 1 MG Tab PO SCH ×2 (08:48→14:06)
[2022-12-05] MEDS: Acetaminophen 325 MG Tab PO PRN ×2 (09:35→21:05)
[2022-12-05] MEDS: fentaNYL 25 MCG/HR Transdermal Patch TRDERM SCH (14:09)
[2022-12-06] MEDS: oxyCODONE 5 MG Tab PO PRN (05:32)
[2022-12-06] MEDS: Bumetanide 1 MG Tab PO SCH ×2 (05:32→15:47)
[2022-12-06] MEDS: Gabapentin 300 MG Cap PO SCH ×3 (08:45→20:34)
[2022-12-06] MEDS: Acetaminophen 325 MG Tab PO PRN (20:35)
[2022-12-07] MEDS: Bumetanide 1 MG Tab PO SCH ×2 (05:39→16:02)
[2022-12-07] MEDS: oxyCODONE 5 MG Tab PO PRN (05:39)
[2022-12-07] MEDS: Acetaminophen 325 MG Tab PO PRN (09:14)
[2022-12-07] MEDS: Gabapentin 300 MG Cap PO SCH ×3 (09:14→21:10)
[2022-12-08] MEDS: Bumetanide 1 MG Tab PO SCH ×2 (05:41→15:04)
[2022-12-08] MEDS: oxyCODONE 5 MG Tab PO PRN ×2 (07:59→15:06)
[2022-12-08] MEDS: Gabapentin 300 MG Cap PO SCH ×3 (07:59→20:40)
[2022-12-08] MEDS: fentaNYL 25 MCG/HR Transdermal Patch TRDERM SCH (15:07)
[2022-12-09] MEDS: oxyCODONE 5 MG Tab PO PRN ×3 (00:04→16:19)
[2022-12-09] MEDS: Bumetanide 1 MG Tab PO SCH ×2 (05:13→16:19)
[2022-12-09] MEDS: Acetaminophen 325 MG Tab PO PRN (05:46)
[2022-12-09] MEDS: Gabapentin 300 MG Cap PO SCH ×3 (09:16→23:34)
[2022-12-10] MEDS: Bumetanide 1 MG Tab PO SCH ×2 (06:18→14:09)
[2022-12-10] MEDS: Gabapentin 300 MG Cap PO SCH ×3 (08:45→20:19)
[2022-12-10] MEDS: oxyCODONE 5 MG Tab PO PRN ×2 (13:46→20:19)
[2022-12-11] MEDS: oxyCODONE 5 MG Tab PO PRN ×3 (05:40→22:42)
[2022-12-11] MEDS: Bumetanide 1 MG Tab PO SCH ×2 (05:40→14:16)
[2022-12-11] MEDS: Gabapentin 300 MG Cap PO SCH ×3 (12:20→20:29)
[2022-12-11] MEDS: fentaNYL 25 MCG/HR Transdermal Patch TRDERM SCH (14:14)
[2022-12-11] MEDS: Acetaminophen 325 MG Tab PO PRN (20:29)
[2022-12-12] MEDS: oxyCODONE 5 MG Tab PO PRN ×3 (05:55→19:53)
[2022-12-12] MEDS: Bumetanide 1 MG Tab PO SCH ×2 (05:56→15:06)
[2022-12-12] MEDS: Acetaminophen 325 MG Tab PO PRN (09:15)
[2022-12-12] MEDS: Gabapentin 300 MG Cap PO SCH ×3 (09:15→20:34)
[2022-12-12] MEDS ORDERED: Morphine 4 MG/ML Syringe IVPUSH PRN (10:30)
[2022-12-12] MEDS ORDERED: oxyCODONE 5 MG Tab PO PRN (12:27)
[2022-12-13] MEDS: oxyCODONE 5 MG Tab PO PRN (04:51)
[2022-12-13] MEDS: Bumetanide 1 MG Tab PO SCH ×3 (06:34→16:35)
[2022-12-13] MEDS: Gabapentin 300 MG Cap PO SCH ×2 (09:00→16:35)
[2022-12-13] MEDS ORDERED: fentaNYL 50 MCG/HR Transdermal Patch TRDERM SCH (16:00)
[2022-12-13] MEDS ORDERED: Acetaminophen 650 MG Supp RECTAL PRN (16:39)
[2022-12-13] MEDS: Morphine 10 MG/0.5 ML Oral Syringe PO PRN (17:27)
[2022-12-14] MEDS: Morphine 10 MG/0.5 ML Oral Syringe PO PRN ×3 (05:02→18:46)
[2022-12-14] MEDS: Bumetanide 1 MG Tab PO SCH ×2 (05:04→15:25)
[2022-12-15] MEDS: Bumetanide 1 MG Tab PO SCH ×2 (06:25→15:23)
[2022-12-15] MEDS: Morphine 10 MG/0.5 ML Oral Syringe PO PRN ×4 (08:27→21:47)
[2022-12-15] MEDS ORDERED: fentaNYL 50 MCG/HR Transdermal Patch TRDERM SCH (16:00)
[2022-12-16] MEDS: Morphine 10 MG/0.5 ML Oral Syringe PO PRN ×3 (06:10→21:14)
[2022-12-16] MEDS: Bumetanide 1 MG Tab PO SCH ×2 (06:10→14:31)
[2022-12-16] MEDS ORDERED: Sodium Chloride 0.9% 10 ML Syringe FLUSH PRN (08:34)
[2022-12-16] MEDS ORDERED: Sodium Chloride 0.9% 10 ML Syringe FLUSH SCH (09:00)
[2022-12-16] MEDS: Acetaminophen 325 MG Tab PO PRN ×2 (14:30→21:12)
[2022-12-17] MEDS: oxyCODONE 5 MG Tab PO PRN (02:12)
[2022-12-17] MEDS: Morphine 10 MG/0.5 ML Oral Syringe PO PRN ×5 (05:03→18:34)
[2022-12-17] MEDS: Bumetanide 1 MG Tab PO SCH (05:04)
[2022-12-17] MEDS ORDERED: fentaNYL 75 MCG/HR Transdermal Patch TRDERM SCH (12:00)
[2022-12-18] MEDS: Morphine 10 MG/0.5 ML Oral Syringe PO PRN ×4 (05:42→17:13)
[2022-12-18] MEDS: LORazepam 1 MG Tab PO PRN (09:30)
[2022-12-19] MEDS: Acetaminophen/oxyCODONE 325-5 MG Tab PO PRN (04:59)
[2022-12-19] MEDS: Morphine 10 MG/0.5 ML Oral Syringe PO PRN (14:56)
[2022-12-20] MEDS: Acetaminophen/oxyCODONE 325-5 MG Tab PO PRN (03:55)
[2022-12-20] MEDS: Morphine 10 MG/0.5 ML Oral Syringe PO PRN ×3 (05:44→15:44)
[2022-12-20] MEDS: fentaNYL 100 MCG/HR Transdermal Patch TRDERM SCH (09:50)
[2022-12-20] MEDS: oxyCODONE 5 MG Tab PO PRN (13:46)
[2022-12-20] MEDS: LORazepam 1 MG Tab PO PRN (13:46)
[2022-12-21] MEDS: Morphine 10 MG/0.5 ML Oral Syringe PO PRN ×4 (04:37→14:45)
[2022-12-22] MEDS: Morphine 10 MG/0.5 ML Oral Syringe PO PRN ×3 (05:25→15:52)
[2022-12-23] MEDS: Morphine 10 MG/0.5 ML Oral Syringe PO PRN ×4 (05:53→17:39)
[2022-12-23] MEDS: fentaNYL 100 MCG/HR Transdermal Patch TRDERM SCH (10:56)
[2022-12-24] MEDS: Morphine 10 MG/0.5 ML Oral Syringe PO PRN ×4 (06:09→21:03)
[2022-12-25] MEDS: Morphine 10 MG/0.5 ML Oral Syringe PO PRN (10:21)
[2022-12-25] MEDS: LORazepam 1 MG Tab PO PRN (11:48)
[2022-12-25] MEDS: Acetaminophen/oxyCODONE 325-5 MG Tab PO PRN (15:37)
[2022-12-26] MEDS: fentaNYL 100 MCG/HR Transdermal Patch TRDERM SCH (10:23)
[2022-12-26] MEDS: Morphine 10 MG/0.5 ML Oral Syringe PO PRN (10:25)
[2022-12-26] MEDS: LORazepam 1 MG Tab PO PRN (20:43)
[2022-12-26] MEDS: Acetaminophen/oxyCODONE 325-5 MG Tab PO PRN (20:43)
[2022-12-27] MEDS: Acetaminophen/oxyCODONE 325-5 MG Tab PO PRN ×2 (10:08→20:37)
[2022-12-27] MEDS: LORazepam 1 MG Tab PO PRN ×2 (13:53→20:38)
[2022-12-27] MEDS: Morphine 10 MG/0.5 ML Oral Syringe PO PRN (13:53)
[2022-12-28] MEDS: Morphine 10 MG/0.5 ML Oral Syringe PO PRN (12:20)
[2022-12-29] MEDS: fentaNYL 100 MCG/HR Transdermal Patch TRDERM SCH (09:16)
[2022-12-29] MEDS: Acetaminophen/oxyCODONE 325-5 MG Tab PO PRN (09:17)
[2022-12-29] MEDS: Morphine 10 MG/0.5 ML Oral Syringe PO PRN ×2 (15:22→21:08)
[2022-12-29] MEDS: LORazepam 1 MG Tab PO PRN (17:42)
[2022-12-30] MEDS: Morphine 10 MG/0.5 ML Oral Syringe PO PRN ×5 (01:21→22:45)
[2022-12-30] MEDS: Acetaminophen/oxyCODONE 325-5 MG Tab PO PRN (11:00)
[2022-12-31] MEDS: Morphine 10 MG/0.5 ML Oral Syringe PO PRN ×4 (00:46→20:00)
[2023-01-01] MEDS: Morphine 10 MG/0.5 ML Oral Syringe PO PRN ×3 (00:20→13:34)
[2023-01-01] MEDS: oxyCODONE 5 MG Tab PO PRN ×2 (01:43→13:46)
[2023-01-01] MEDS: LORazepam 1 MG Tab PO PRN ×3 (01:43→13:36)
[2023-01-01] MEDS: fentaNYL 100 MCG/HR Transdermal Patch TRDERM SCH (13:32)
[2023-01-02] MEDS: Morphine 10 MG/0.5 ML Oral Syringe PO PRN (13:45)
[2023-01-03] MEDS: Morphine 10 MG/0.5 ML Oral Syringe PO PRN ×3 (04:51→15:42)
[2023-01-03] MEDS: LORazepam 1 MG Tab PO PRN ×2 (10:42→20:57)
[2023-01-03] MEDS: Acetaminophen/oxyCODONE 325-5 MG Tab PO PRN (20:57)
[2023-01-04] MEDS: Morphine 10 MG/0.5 ML Oral Syringe PO PRN ×3 (11:12→20:44)
[2023-01-04] MEDS: fentaNYL 100 MCG/HR Transdermal Patch TRDERM SCH (11:13)
[2023-01-04] MEDS: Acetaminophen/oxyCODONE 325-5 MG Tab PO PRN (17:24)
[2023-01-04] MEDS: LORazepam 1 MG Tab PO PRN (20:44)
[2023-01-05] MEDS: LORazepam 1 MG Tab PO PRN (12:47)
[2023-01-05] MEDS: Acetaminophen/oxyCODONE 325-5 MG Tab PO PRN (12:47)
[2023-01-05] MEDS: Morphine 10 MG/0.5 ML Oral Syringe PO PRN (12:47)
[2023-01-06] MEDS: Morphine 10 MG/0.5 ML Oral Syringe PO PRN ×2 (04:27→15:42)
[2023-01-06] MEDS: Acetaminophen/oxyCODONE 325-5 MG Tab PO PRN (15:41)
[2023-01-06] MEDS: LORazepam 1 MG Tab PO PRN (15:42)
[2023-01-07] MEDS: Morphine 10 MG/0.5 ML Oral Syringe PO PRN ×2 (04:46→13:46)
[2023-01-07] MEDS: fentaNYL 100 MCG/HR Transdermal Patch TRDERM SCH (13:46)
[2023-01-07] MEDS: LORazepam 1 MG Tab PO PRN ×2 (13:47→22:35)
[2023-01-07] MEDS: Acetaminophen/oxyCODONE 325-5 MG Tab PO PRN ×2 (13:47→22:32)
[2023-01-08] MEDS: Morphine 10 MG/0.5 ML Oral Syringe PO PRN ×2 (04:42→16:50)
[2023-01-08] MEDS: LORazepam 1 MG Tab PO PRN (16:49)
[2023-01-08] MEDS: Acetaminophen/oxyCODONE 325-5 MG Tab PO PRN (16:49)
[2023-01-09] MEDS: Morphine 10 MG/0.5 ML Oral Syringe PO PRN ×2 (08:27→15:20)
[2023-01-09] MEDS: LORazepam 1 MG Tab PO PRN (15:21)
[2023-01-10] MEDS: Morphine 10 MG/0.5 ML Oral Syringe PO PRN ×3 (09:10→15:06)
[2023-01-10] MEDS: fentaNYL 100 MCG/HR Transdermal Patch TRDERM SCH (09:10)
[2023-01-10] MEDS: Acetaminophen/oxyCODONE 325-5 MG Tab PO PRN (13:05)
[2023-01-11] MEDS: Morphine 10 MG/0.5 ML Oral Syringe PO PRN ×2 (08:14→14:45)
[2023-01-12] MEDS: Morphine 10 MG/0.5 ML Oral Syringe PO PRN ×3 (05:05→12:24)
[2023-01-13] MEDS: Morphine 10 MG/0.5 ML Oral Syringe PO PRN ×3 (05:11→16:08)
[2023-01-13] MEDS: fentaNYL 100 MCG/HR Transdermal Patch TRDERM SCH (11:49)
[2023-01-13] MEDS: LORazepam 1 MG Tab PO PRN (11:52)
[2023-01-14] MEDS: Morphine 10 MG/0.5 ML Oral Syringe PO PRN ×2 (05:22→17:02)
[2023-01-15] MEDS: Morphine 10 MG/0.5 ML Oral Syringe PO PRN ×3 (12:33→21:51)
[2023-01-15] MEDS: LORazepam 1 MG Tab PO PRN ×2 (15:24→21:51)
[2023-01-15] MEDS ORDERED: fentaNYL 50 MCG/HR Transdermal Patch TRDERM SCH (16:00)
[2023-01-16] MEDS: Morphine 10 MG/0.5 ML Oral Syringe PO PRN ×2 (03:42→07:03)
[2023-01-16] MEDS: LORazepam 1 MG Tab PO PRN (03:43)
[2023-01-16] MEDS ORDERED: Scopolamine 1.5 MG Transdermal Patch TRDERM PRN (07:09)
[2023-01-16] MEDS ORDERED: Morphine 10 MG/0.5 ML Oral Syringe PO PRN (07:10)
[2023-01-19] MEDS ORDERED: [UNRECOGNIZED DRUG - REMARK] TRDERM PRN (07:30)
== END 2023-01-16 10:20 | disposition expired | DRG 592 ==
LOC: JD.ED 16:06 → JD.MS 21:35
PROVIDERS: ADMIT Emergency Medicine; ATTEND Internal Medicine
DX: L89.153 Pressure ulcer of sacral region, stage 3 (principal); E43 Unspecified severe protein-calorie malnutrition; J18.9 Pneumonia, unspecified organism; I50.33 Acute on chronic diastolic (congestive) heart failure; E11.622 Type 2 diabetes mellitus with other skin ulcer; L97.111 Non-pressure chronic ulcer of right thigh limited to breakdown of skin; E87.1 Hypo-osmolality and hyponatremia; N30.01 Acute cystitis with hematuria; Z16.39 Resistance to other specified antimicrobial drug; Z66 Do not resuscitate; Z51.5 Encounter for palliative care; Z95.2 Presence of prosthetic heart valve; Z99.3 Dependence on wheelchair; E87.6 Hypokalemia; E83.42 Hypomagnesemia; R32 Unspecified urinary incontinence; D50.9 Iron deficiency anemia, unspecified; E83.39 Other disorders of phosphorus metabolism; L89.104 Pressure ulcer of unspecified part of back, stage 4; D75.1 Secondary polycythemia; B96.20 Unspecified Escherichia coli [E. coli] as the cause of diseases classified elsewhere; M19.90 Unspecified osteoarthritis, unspecified site; F32.A Depression, unspecified; Z96.659 Presence of unspecified artificial knee joint; N18.30 Chronic kidney disease, stage 3 unspecified; E11.22 Type 2 diabetes mellitus with diabetic chronic kidney disease; E66.9 Obesity, unspecified; Z79.01 Long term (current) use of anticoagulants; Z98.890 Other specified postprocedural states; Z98.49 Cataract extraction status, unspecified eye; Z95.0 Presence of cardiac pacemaker; Z79.82 Long term (current) use of aspirin; Z79.899 Other long term (current) drug therapy; Z68.38 Body mass index [BMI] 38.0-38.9, adult
CPT/HCPCS: 36415; 51702; 71045; 80053; 83605; 83690; 83735; 83880; 84484; 85025; 85610; 85730; 86140; 87040 ×2; 93005; 96374; 99285; J0696; J3490; 51701; 72193; 72193-26; 80048; 81001; 82306; 83036; 83540; 84100; 84134; 84466; 87086; 87088; 87186; 87641; 93010; 93307; 97110-GP; 97162-GP; 97166-GO; 97530-GP; 99223; 99232; 99233; 99238; A9270-GY; J1644; J2185; J2916; J3475; J3480; J7030; J7050; P9047; Q9967